=== PATIENT | male | born 1980 | race American Indian/Alaskan Native ===

== ENCOUNTER 2020-04-22 13:15 | Emergency (ER) | payer OTHER ==
--- NOTE | 2020-04-22 13:28 | Emergency Department Report ---
Blank Doc - Documentation Documentation: 39-year-old male that presents with right hip pain. exam: limited/decreased ROM due to pain. This initial assessment/diagnostic orders/clinical plan/treatment(s) is/are subject to change based on patient's health status, clinical progression and re- assessment by fellow clinical providers in the ED. Further treatment and workup at subsequent clinical providers discretion. Patient/guardians urged not to elope from the ED as their condition may be serious if not clinically assessed and managed. Initial orders include: 1- Patient sent to [facility] for further evaluation and treatment 2- xrays
--- NOTE | 2020-04-22 14:04 | XRay Report ---
Right hip, 2 views INDICATION: Nontraumatic hip pain x1 month FINDINGS: The joint space is maintained. There is no fracture or dislocation. No spurring or arthriti c change. No bone lesion or periostitis. No significant abnormality. IMPRESSION: Negative study Signer Name: Frandy Cormier MD Signed: 04/22/2020 2:00 PM Workstation Name: [id number]
[2020-04-22] MEDS ORDERED: KETOROLAC 60 MG/2 ML INJ IM ONE (18:27)
[2020-04-22 18:43] VITALS: BP 168/100
--- NOTE | 2020-04-22 19:44 | Emergency Department Report ---
ED Extremity Problem HPI - General Chief complaint: Extremity Problem,Nontraumatic Stated complaint: RIGHT HIP PAIN Time Seen by Provider: 04/22/20 13:28 Source: patient Mode of arrival: Ambulatory Limitations: No Limitations - History of Present Illness Initial comments: Patient is a 39-year-old male presents emergency room with complaints of right hip pain for 2 months. He denies any fall or injury. He has never seen orthopedic. He denies any numbness or weakness. He is ambulatory. 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 He denies any past medical history. He denies any allergies to medications. He denies any leg swelling. He states that he has not seen a primary care doctor in a few years. Severity scale (0 -10): 6 - Related Data Allergies Allergy/AdvReac Type Severity Reaction Status Date / Time No Known Allergies Allergy Unverified 04/22/20 13:26 ED Review of Systems ROS: Stated complaint: RIGHT HIP PAIN Other details as noted in HPI Comment: All other systems reviewed and negative ED Past Medical Hx - Past Medical History Previous Medical History?: No - Surgical History Past Surgical History?: No - Social History Smoking Status: Current Every Day Smoker Substance Use Type: None ED Physical Exam - General Limitations: No Limitations General appearance: alert, in no apparent distress - Head Head exam: Present: atraumatic, normocephalic - Eye Eye exam: Present: normal appearance - ENT ENT exam: Present: mucous membranes moist - Extremities Exam Extremities exam: Present: other (no bony ttp of the right lower extremity, FROM of the RLE, pt is ambulatory, no edema to the RLE, no calf ttp, neurovascularly intact) - Neurological Exam Neurological exam: Present: alert, oriented X3 - Psychiatric Psychiatric exam: Present: normal affect, normal mood - Skin Skin exam: Present: warm, dry, intact ED Course Vital Signs 04/22/20 04/22/20 13:28 18:42 Temperature 97.9 F Pulse Rate 103 H 90 Respiratory 18 18 Rate Blood Pressure 170/107 Blood Pressure 168/100 [Left] O2 Sat by Pulse 98 98 Oximetry ED Medical Decision Making - Lab Data Vital Signs 04/22/20 04/22/20 13:28 18:42 Temperature 97.9 F Pulse Rate 103 H 90 Respiratory 18 18 Rate Blood Pressure 170/107 Blood Pressure 168/100 [Left] O2 Sat by Pulse 98 98 Oximetry - Radiology Data Radiology results: report reviewed Ordering Physician: JOYCE REED NP Date of Service: 04/22/20 Procedure(s): XR hip 2-3V RT Accession Number(s): [id number] cc: JOYCE REED NP Fluoro Time In Minutes: Right hip, 2 views INDICATION: Nontraumatic hip pain x1 month FINDINGS: The joint space is maintained. There is no fracture or dislocation. No spurring or arthritic change. No bone lesion or periostitis. No significant abnormality. IMPRESSION: Negative study Signer Name: Frandy Cormier MD Signed: 04/22/2020 2:00 PM Workstation Name: [id number] Transcribed By: KEAGAN Dictated By: Frandy Cormier MD Electronically Authenticated By: Frandy Cormier MD Signed Date/Time: 04/22/20 1400 DD/ 1359 TD/TT: - Medical Decision Making Patient is a 39-year-old male presents emergency room with complaints of right hip pain for 2 months. He denies any fall or injury. He has never seen or thopedic. He denies any numbness or weakness. He is ambulatory. 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 He denies any past medical history. He denies any allergies to medications. He denies any leg swelling. He states that he has not seen a primary care doctor in a few years. Initial vitals with mild tachycardia and elevated blood pressure which improved upon repeat. On exam: no bony ttp of the right lower extremity, FROM of the RLE, pt is ambulatory, no edema to the RLE, no calf ttp, neurovascularly intact. X-ray of the hip was ordered by triage provider prior to me ever examining patient. X- ray of the right hip: Negative study. Discussed all findings with patient and discussed elevated blood pressure. Patient has no clinical signs of septic joint or DVT. Patient will be referred to a primary care doctor and a orthopedic. advised pt May alternate Aleve and then Tylenol every 6-8 hours as needed for discomfort. May use ice pack, heating pad, rest, Epson salt. May use a arthritis ointment. Follow-up with the orthopedic doctor. Follow-up with a primary care doctor. Please keep a blood pressure log and monitor your blood pressure and take this to the primary care doctor. Eat a low-sodium diet. Increase your water intake. Incorporate 30 minutes of daily exercise. Return to the emergency room for any new or worsening symptoms. - Differential Diagnosis arthritis, muscle strain, trochanteric bursitis, AVN, IT band syndrome Critical care attestation.: If time is entered above; I have spent that time in minutes in the direct care of this critically ill patient, excluding procedure time. ED Disposition Clinical Impression: Right hip pain, Elevated blood pressure reading Disposition: MED SCREENING EXAM-LEFT Is pt being admited?: No Does the pt Need Aspirin: No Condition: Stable Instructions: Low Sodium Diet (ED), Hypertension (ED), Arthralgia (ED) Additional Instructions: May alternate Aleve and then Tylenol every 6-8 hours as needed for discomfort. May use ice pack, heating pad, rest, Epson salt. May use a arthritis ointment. Follow-up with the orthopedic doctor. Follow-up with a primary care doctor. Please keep a blood pressure log and monitor your blood pressure and take this to the primary care doctor. Eat a low-sodium diet. Increase your water intake. Incorporate 30 minutes of daily exercise. Return to the emergency room for any new or worsening symptoms. Referrals: JUSTA CORNEJO MD [Staff Physician] - 3-5 Days [facility] [Provider Group] - 3-5 Days ALEJANDRINA PRIDE MD [Staff Physician] - 3-5 Days INDRA RODRIGUEZ MD [Staff Physician] - 3-5 Days [facility] [Provider Group] - 3-5 Days Time of Disposition: 19:42 Print Language: HUNGARIAN
== END 2020-04-22 19:49 | disposition left against medical advice (07) ==
LOC: ED 13:15
DX: M25.551 Pain in right hip (principal); R03.0 Elevated blood-pressure reading, without diagnosis of hypertension; Z53.21 Procedure and treatment not carried out due to patient leaving prior to being seen by health care provider
CPT/HCPCS: 73502; J1885; 96372; 99283

== ENCOUNTER 2022-02-18 09:29 | Emergency (ER) | payer OTHER ==
--- NOTE | 2022-02-18 13:54 | Emergency Department Report ---
- General Chief Complaint: Eye Problems Stated Complaint: EYES RED AND BUFFY Source: patient Mode of arrival: Ambulatory Limitations: No Limitations - History of Present Illness Initial Comments: 41-year-old male presents to the ED with redness noted to the bilateral, nasal congestion, cough x5 days. Patient states that he has been using his son allergy drops with some relief. Patient states that he has allergies and normally gets stuffy this time a year due to the pollen. Patient is alert and oriented x3. Patient denies any headache at present but states facial pain. Patient states using [id number]-[id number] sinus medication. Patient denies any medical history. No acute distress noted. No ill appearance noted. MD Complaint: nasal congestion, sinus pain Onset/Timin -: week(s) Severity: mild Improves With: OTC cold medicine Worsens With: nothing Associated Symptoms: denies other symptoms - Related Data Previous Rx's Medication Instructions Recorded Last Taken Type Amoxicillin/Potassium Clav 1 each PO BID 10 Days #20 tab 02/18/22 Unknown Rx [Augmentin 875-125 Tablet] Olopatadine HCl [Patanol 0.1%] 1 drop OP BID 5 Days #5 ml 02/18/22 Unknown Rx predniSONE [Deltasone] 40 mg PO QDAY 5 Days #10 tab 02/18/22 Unknown Rx Allergies Allergy/AdvReac Type Severity Reaction Status Date / Time No Known Allergies Allergy Unverified 04/22/20 13:26 ED Review of Systems ROS: Stated complaint: EYES RED AND BUFFY Other details as noted in HPI Constitutional: denies: chills, fever Eyes: eye discharge. denies: eye pain, vision change ENT: congestion. denies: ear pain, throat pain Respiratory: denies: cough, shortness of breath, wheezing Cardiovascular: denies: chest pain, palpitations Endocrine: no symptoms reported Gastrointestinal: denies: abdominal pain, nausea, diarrhea Genitourinary: denies: urgency, dysuria Musculoskeletal: denies: back pain, joint swelling, arthralgia Skin: denies: rash, lesions Neurological: denies: headache, weakness, paresthesias Psychiatric: denies: anxiety, depression Hematological/Lymphatic: denies: easy bleeding, easy bruising ED Past Medical Hx - Social History Smoking Status: Current Every Day Smoker Substance Use Type: None - Medications Home Medications: Home Medications Medication Instructions Recorded Confirmed Last Taken Type Amoxicillin/Potassium Clav 1 each PO BID 10 Days #20 tab 02/18/22 Unknown Rx [Augmentin 875-125 Tablet] Olopatadine HCl [Patanol 0.1%] 1 drop OP BID 5 Days #5 ml 02/18/22 Unknown Rx predniSONE [Deltasone] 40 mg PO QDAY 5 Days #10 tab 02/18/22 Unknown Rx ED Physical Exam - General Limitations: No Limitations General appearance: alert, in no apparent distress - Head Head exam: Present: atraumatic, normocephalic - Eye Eye exam: Present: normal appearance - ENT ENT exam: Present: mucous membranes moist - Neck Neck exam: Present: normal inspection - Respiratory Respiratory exam: Present: normal lung sounds bilaterally. Absent: respiratory distress - Cardiovascular Cardiovascular Exam: Present: regular rate, normal rhythm. Absent: systolic murmur, diastolic murmur, rubs, gallop - GI/Abdominal GI/Abdominal exam: Present: soft, normal bowel sounds - Rectal Rectal exam: Present: deferred - Extremities Exam Extremities exam: Present: normal inspection - Back Exam Back exam: Present: normal inspection - Neurological Exam Neurological exam: Present: alert, oriented X3 - Psychiatric Psychiatric exam: Present: normal affect, normal mood - Skin Skin exam: Present: warm, dry, intact, normal color. Absent: rash ED Course Vital Signs 02/18/22 02/18/22 10:12 15:34 Temperature 97.6 F Pulse Rate 85 87 Respiratory 18 20 Rate Blood Pressure 170/128 190/125 [Right] O2 Sat by Pulse 96 Oximetry ED Medical Decision Making - Medical Decision Making 41-year-old male presents to the ED with redness noted to the bilateral, nasal congestion, cough x5 days. Patient states that he has been using his son allergy drops with some relief. Patient states that he has allergies and normally gets stuffy this time a year due to the pollen. Patient is alert and oriented x3. Patient denies any headache at present but states facial pain. Patient states using kpoz-sum-nvsgnil sinus medication. Patient denies any medical history. No acute distress noted. No ill appearance noted. Physical examination nasal turbinates swollen. Redness noted to bilateral eyes. Frontal tenderness noted upon palpation to the sinus cavity. Postnasal drip noted. Patient is current hypertension. Patient states no history of hypertension.will not treat patient for asymptomatic hypertension at present time. Patient has stated he has been taking abns-[id number] various sinus medication patient is to follow-up with primary care doctor for evaluation of hypertension.. Rechecked the patient is resting quietly quietly and comfortable and feeling better. I discussed the results of diagnostic study, my clinical impression and the plan for further treatment with the patient. Patient agrees with plan and discharge at this present time. All question addressed. I have given the patient instruction regarding a diagnosis ,expectation ,follow- up and return precaution. I explained to the patient that emergent condition may arise and to return to the ED for new worsen and any new persisting condition. I have explained the importance of following up with the primary care physician or referral physician listed below has instructed. The patient verbalized understanding of discharge instruction. Critical care attestation.: If time is entered above; I have spent that time in minutes in the direct care of this critically ill patient, excluding procedure time. ED Disposition Clinical Impression: Hypertension Sinusitis Qualifiers: Sinusitis location: maxillary Chronicity: acute Recurrence: non-recurrent Qualified Code(s): J01.00 - Acute maxillary sinusitis, unspecified Disposition: HOME / SELF CARE / HOMELESS Is pt being admited?: No Does the pt Need Aspirin: No Condition: Stable Instructions: Sinusitis, Adult, Paho-xi-Suyc, Hypertension, Adult, Qkla-om-Aonp, Hypertension (ED) Additional Instructions: Take medication as prescribed return to ed for any worsen symptoms Prescriptions: Amoxicillin/Potassium Clav [Augmentin 875-125 Tablet] 1 each PO BID 10 Days #20 tab predniSONE [Deltasone] 40 mg PO QDAY 5 Days #10 tab Olopatadine HCl [Patanol 0.1%] 1 drop OP BID 5 Days #5 ml Referrals: PRIMARY CARE, [Primary Care Provider] - 3-5 Days [facility] [Provider Group] - 3-5 Days Forms: Work/School Release Form(ED)
[2022-02-18 15:35] VITALS: BP 190/125
== END 2022-02-18 15:35 | disposition home or self-care (01) ==
LOC: ED 09:29
DX: J32.9 Chronic sinusitis, unspecified (principal); I10 Essential (primary) hypertension; F17.200 Nicotine dependence, unspecified, uncomplicated; Z79.899 Other long term (current) drug therapy
CPT/HCPCS: 99282